=== PATIENT | female | born 2000 | race Caucasian/White ===

== ENCOUNTER → 2024-01-27 16:02 | Outpatient (REF) | payer BC, SELFPAY | LOC: PAVMRI 16:02 | PROVIDERS: ATTENDING PHYSICIAN Student in an Organized Health Care Education/Training Program | DX: G44.209 Tension-type headache, unspecified, not intractable (principal); J34.89 Other specified disorders of nose and nasal sinuses; R42 Dizziness and giddiness | CPT/HCPCS: 70551 ==

== ENCOUNTER → 2024-08-28 14:34 | Outpatient (REF) | payer BC, SELFPAY | LOC: WDC 14:34 | PROVIDERS: ATTENDING PHYSICIAN Family Medicine | DX: R22.2 Localized swelling, mass and lump, trunk (principal) | CPT/HCPCS: 76642 ==

== ENCOUNTER 2024-09-08 10:28 | Emergency (ER) | payer BC, SELFPAY ==
[2024-09-08 10:41] VITALS: BP 124/85
--- NOTE | 2024-09-08 10:53 | ED.GENMED ---
History of Present Illness
<uJliet Jones MD, Resident - Last Filed: 09/08/24 13:10>
General
Chief Complaint: Chest Pain
Time Seen by Provider: 09/08/24 10:52
History of Present Illness
History of Present Illness:
This is a 24 y/o female with PMH of Anxiety who presents to the ED complaining of ongoing dull chest pain that started 3 weeks ago. She rates the pain 8 out of 10. She reports the pain is present in the middle of her chest and radiates to
bilateral armpits. She reports pain is also prominent in bilateral breast area. She reports tenderness to palpation of chest. Three weeks ago she went to see her PCP who diagnosed her with costochondritis and was started on a muscle relaxant and
a 7-day course of steroids. Patient reports medication did not help the pain. In addition, PCP ordered an ultrasound of breast which patient states was unremarkable. Patient denies pain radiating to jaw or back. No recent travels. No recent
trauma. She reports dyspnea occasionally. She denies fever, chills, nausea, vomiting, syncope, palpitations cough, reflux. No recent illness episode
Past History
<Juliet Jones MD, Resident - Last Filed: 09/08/24 13:10>
Past History
ED Past Medical History: Other (Anxiety)
ED Past Surgical History: None
Social History
Tobacco: Non-smoker
Alcohol: Occasional
Drug: None
Living: with family
Review of Systems
<Juliet Jones MD, Resident - Last Filed: 09/08/24 13:10>
Review of Systems
Constitutional: Denies fever, weight loss, fatigue, night sweats or chills
Respiratory: Reports no symptoms
Cardiac: Reports chest pain; Denies diaphoresis, palpitations or syncope
ABD/GI: Reports no symptoms
Phy Exam
<Juliet Jones MD, Resident - Last Filed: 09/08/24 13:10>
General Physical Exam
General Presentation: well appearing and mild distress
General Mental: alert
Cardiovascular Exam
Cardiovascular Exam: regular rate/rhythm and tachycardia
Pulmonary Exam
Pulmonary Exam: lungs clear and no respiratory distress
Gastrointestinal Exam
Gastrointestinal Exam: normal bowel sounds, non tender, soft and non distended
Neurological Exam
Neurological Exam: alert and oriented x3
Musculoskeletal Exam
Musculoskeletal Exam: full ROM
Scores
<Juliet Jones MD, Resident - Last Filed: 09/08/24 13:10>
Heart Score for Chest Pain Patients
STEMI patient?: Not applicable
Course
<Juliet Jones MD, Resident - Last Filed: 09/08/24 13:10>
Orders/Labs/Results
Orders:
Orders
09/08/24 10:29
EKG [Electrocardiogram (*1)] Urgent
Reason for Study: Chest Pain
EKG- Treatment ONCE
09/08/24 10:43
Test Result ONCE
09/08/24 10:48
Complete Blood Count/With Diff Urgent
Comprehensive Metabolic Panel Urgent
HCG, Serum Qualitative Screen Urgent
Lipase Urgent
Troponin I Urgent
09/08/24 11:19
CXR2 [CR Chest - 2 Views ] Stat
Comment:
Reason For Exam: chest pain, tachycardia
09/08/24 11:23
DDimer [D-Dimer] Stat
09/08/24 11:55
Ibuprofen [Motrin] 600 mg PO NOW STA
Abnormal Lab Results
09/08/24
10:48
MCH 32.0 H pg
(27.0-31.0)
Chloride 109 H mmol/L
(98-107)
09/08/24 10:48
09/08/24 10:48
Vital Signs
Initial and Last Documented VS:
Initial Vital Signs
Temp Pulse Resp BP Pulse Ox
98.5 F 111 18 124/85 100
09/08/24 10:41 09/08/24 10:41 09/08/24 10:41 09/08/24 10:41 09/08/24 10:41
Last Documented Vital Signs
Temp Pulse Resp BP Pulse Ox
98.5 F 96 17 124/85 100
09/08/24 10:41 09/08/24 11:30 09/08/24 11:30 09/08/24 10:41 09/08/24 11:30
<Fahad Archer, DO - Last Filed: 09/08/24 11:37>
Orders/Labs/Results
Orders:
Orders
09/08/24 10:29
EKG [Electrocardiogram (*1)] Urgent
Reason for Study: Chest Pain
EKG- Treatment ONCE
09/08/24 10:43
Test Result ONCE
09/08/24 10:48
Complete Blood Count/With Diff Urgent
Comprehensive Metabolic Panel Urgent
HCG, Serum Qualitative Screen Urgent
Lipase Urgent
Troponin I Urgent
09/08/24 11:19
CXR2 [CR Chest - 2 Views ] Stat
Comment:
Reason For Exam: chest pain, tachycardia
09/08/24 11:23
DDimer [D-Dimer] Stat
09/08/24 11:55
Ibuprofen [Motrin] 600 mg PO NOW STA
Abnormal Lab Results
09/08/24
10:48
MCH 32.0 H pg
(27.0-31.0)
Chloride 109 H mmol/L
(98-107)
09/08/24 10:48
09/08/24 10:48
Vital Signs
Initial and Last Documented VS:
Initial Vital Signs
Temp Pulse Resp BP Pulse Ox
98.5 F 111 18 124/85 100
09/08/24 10:41 09/08/24 10:41 09/08/24 10:41 09/08/24 10:41 09/08/24 10:41
Last Documented Vital Signs
Temp Pulse Resp BP Pulse Ox
98.5 F 96 17 124/85 100
09/08/24 10:41 09/08/24 11:30 09/08/24 11:30 09/08/24 10:41 09/08/24 11:30
<Juliet Jones MD, Resident - Last Filed: 09/08/24 13:10>
MDM/Problems Addressed
MDM/Problems Addressed:
24-year-old female with history of anxiety presents to the ED complaining of dull chest pain present in middle of the chest and bilateral breasts that radiates to bilateral armpits. No recent travel. Nontoxic-appearing on presentation. Tenderness
to palpation of chest. Lungs clear to auscultation bilaterally. Tachycardic on presentation. EKG with sinus tachycardia. CBC unremarkable, CMP unremarkable, lipase normal, troponin normal. Given chest pain plus tachycardia will check D-dimer.
Evaluate with chest x-ray.
Update: D-dimer negative, chest Xray unremarkable. Given tenderness to palpation of chest ,etiology likely musculoskeletal versus anxiety related. Discharged home in stable condition. Advised to take NSAIDs for any musculoskeletal pain and PCP
follow-up for outpatient anxiety management. Return precautions discussed including worsening pain, shortness of breath, palpitations and syncope
<Juliet Jones MD, Resident - Last Filed: 09/08/24 13:10>
*Critical Care Note
Total Time (30-74mins, 75-104mins- exclusive of procedures): Not Applicable
ED Attending Note
<Juliet Jones MD, Resident - Last Filed: 09/08/24 13:10>
-
Portions of this chart may have been created with voice recognition software.� Occasional wrong word or��sound alike� substitutions may have occurred due to the inherent limitations of voice recognition software.
<Fahad Archer, DO - Last Filed: 09/08/24 11:37>
ED Attending Note
Patient seen and examined by attending physician: Yes
I performed a history and physical exam of patient and discussed management with resident, I reviewed resident's note and agree with documented findings and plan of care.: Yes
ED Attending Note:
Seen with resident examined independently nontoxic 24-year-old female few weeks of sharp anterior chest wall pain seen by PCP given steroids and muscle relaxants, she does take oral contraceptives will check chest x-ray EKG, high-sensitivity dimer
and troponin
Discharge Plan
Departure
Patient Disposition: Home (Routine Discharge)
Date of Disposition: 09/08/24
Time of Disposition: 13:08
Patient with high blood pressure during this ER visit?: No
Discharge Problem:
Costochondritis
Instructions: Costochondritis (DC)
Referrals:
Domi Raymundo PA-C [Family Provider] -
Interventions
Interventions:
*Risk Screen - Suicide Last Done: 09/08/24 10:41
ED- Cardiac Assessment Last Done: 09/08/24 10:55
Discharge Date and Time
Print Language: MALTESE
[2024-09-08 10:54] VITALS: BMI 19.0
[2024-09-08 11:03] LABS: % Basophils 0.4 % (0-2); % Eosinophils 3.8 % (0-6); % Immature Granulocytes 0.3 % (0-0.5); % Lymphocytes 40.2 % (20.5-51.1); % Monocytes 8.9 % (1.7-9.3); % Neutrophils 46.4 % (42.2-75.2); Absolute Eosinophils 0.3 10^3/uL (0-0.7); Absolute Lymphocytes 2.8 10^3/uL (1.2-3.4); Absolute Monocytes 0.6 10^3/uL (0.1-0.6); Absolute Neutrophils 3.2 10^3/uL (1.4-6.5); Hematocrit 43.7 % (37.0-47.0); Hemoglobin 15.4 g/dL (12.0-16.0); Mean Corp Hgb Conc. 35.2 g/dL (33.0-37.0); Mean Corpuscular Volume 90.7 fL (81.0-99.0); Mean Platelet Volume 9.5 fL (7.4-10.4); Nucleated Red Blood Cells % 0 %; Platelet Count 210 10^3/uL (130-400); Red Blood Cell Count 4.82 10^6/uL (4.20-5.40); Red Cell Dist. Width 12.3 % (11.5-14.5); White Blood Cell Count 6.9 10^3/uL (4.8-10.8)
[2024-09-08 11:20] LABS: HCG, Serum Qualitative Screen Negative
[2024-09-08 11:23] LABS: ALT (SGPT) 15 U/L (0-35); AST (SGOT) 24 U/L (14-36); Albumin 4.7 g/dl (3.5-5.0); Alkaline Phosphatase 48 U/L (38-126); Blood Urea Nitrogen 13 mg/dl (7-17); Calcium 10.2 mg/dl (8.4-10.2); Carbon Dioxide 24 mmol/L (22-30); Chloride 109 mmol/L (98-107); Estimated Creatinine Clearance 117 ml/min; Glucose 84 mg/dl (70-99); Lipase 77 U/L (23-300); Sodium 142 mmol/L (135-145); Total Protein 7.9 g/dl (6.3-8.2); eGFR > 60.00
[2024-09-08 11:27] LABS: Troponin I 0.014 ng/ml
[2024-09-08 11:49] LABS: D-Dimer 0.34 ug/mlFEU (0.00-0.50)
[2024-09-08] MEDS: MOTRIN 600 MG PO (12:20)
== END 2024-09-08 13:18 | disposition home or self-care (01) ==
LOC: EMR 10:28
PROVIDERS: Student in an Organized Health Care Education/Training Program; EMERGENCY PHYSICIAN Emergency Medicine; FAMILY PHYSICIAN Student in an Organized Health Care Education/Training Program
DX: M94.0 Chondrocostal junction syndrome [Tietze] (principal); F41.9 Anxiety disorder, unspecified
CPT/HCPCS: 99285; 71046; 80053; 83690; 84484; 84703; 85025; 85379; 93005